=== PATIENT | male | born 1980 | race Caucasian/White ===

== ENCOUNTER 2016-11-04 16:44 | Emergency (ER) | payer OTHER ==
[~2016-11-04] VITALS: Ht 185.4 cm; Wt 87.9 kg
[2016-11-04 16:54] VITALS: BP 118/73
[2016-11-04] MEDS ORDERED: DIPH,PERTUSS(ACELL),TET VAC/PF 0.5 ML IM-VACC ONE ×2 (17:30→18:04)
== END 2016-11-04 18:12 | disposition home or self-care (01) ==
LOC: ED 18:08
DX: S50.811A Abrasion of right forearm, initial encounter (principal); W54.0XXA Bitten by dog, initial encounter; Y93.89 Activity, other specified; Y99.8 Other external cause status; Y92.89 Other specified places as the place of occurrence of the external cause
CPT/HCPCS: 90471; 90715